=== PATIENT | male | born 1995 | race Caucasian/White ===

== ENCOUNTER 2016-08-30 11:30 | Day surgery (SDC) | payer OTHER ==
[~2016-08-30] VITALS: Ht 188 cm; Wt 97.5 kg
[~2016-08-30 11:30] MED LIST: CALC500T9 PO; CHOL4PAC PO; OMEP20CA11 PO
[2016-08-30 12:33] VITALS: BP 134/83; PULSE 58; RESP 16; O2SAT 98
[2016-08-30] MEDS ORDERED: fentaNYL-PF 50 mCg/mL 2 mL Inj ONE (13:34)
[2016-08-30] MEDS ORDERED: 0.9% Sodium Chloride 1,000 ML IV ONE (13:52)
[2016-08-30 14:03] VITALS: BP 141/69; PULSE 81; RESP 16; O2SAT 98
--- NOTE | 2016-08-30 14:07 | PCM.ENDCOL ---
Colonoscopy Date of Service: Aug 30, 2016 Physician Claude Bennett MD Pre Procedure Diagnosis: Diarrhea Post Procedure Dx & Findings: Polyp ileocecal erosion Procedure Colonoscopy PROCEDURE IN DETAIL: Prep adequate Withdrawal time 12 minutes After unremarkable rectal examination the Olympus video colonoscope was inserted patient's anal canal and was advanced to cecum. Landmarks were identified including the ileocecal valve and appendiceal orifice. Scope further advanced to the terminal ileum. Advanced 10 cm. Terminal ileum showed normal villous structures without any ulcer mass or erosion. Scope was withdrawn systematically. Visualized colonic mucosa showed healthy shiny mucosa with normal healthy-appearing vasculature. At the ileocecal valve, there was a 1 mm erosion which was biopsied using cold forceps. Random biopsies were obtained from the cecum to the rectum. In the distal rectum, there was a linear 5 mm polyp. It was removed completely using cold snare. In the rectum retroflexion was done which showed hemorrhoids. Anal canal was inspected carefully on the way out and hemorrhoids noted. Impression Polyp times 1 status post complete removal Ileo - Cecal valve erosion Hemorrhoids Recommendation Follow up in the GI clinic with Dr. Chin. Repeat colonoscopy in 3 years. Presedation Assessment Risks and Benefits Informed consent was obtained from the patient after all risks and benefits including but not limited to drug reaction, infection, pain, bleeding, perforation, as well as alternatives were discussed. Patient monitoring Continuous pulse oximetry, cardiac monitoring, blood pressure monitoring, IV access, and oxygen at 2L per nasal cannula. Periprocedural Fentanyl: Fentanyl 150mcg Incrementally Midazolam: Midazolam 7mg Incrementally Complications There were no periprocedural complications identified. Post Procedure Plan Post Procedure Recommendations 1. Restrict activities today. 2. Resume normal activities in the morning. 3. Resume medications. 4. Patient informed of normal post procedure side effects as bloating, drowsiness, blood streaking in the stool. 5. average risk CRCS. If colon polyps come back as: -Hyperplastic- can repeat colonoscopy in 10 years -Tubular adenoma- repeat colonoscopy in 5 years -Tubulovillous/villous adenoma- repeat colonoscopy in 3 years -If any dysplasia- return to clinic as soon as possible 6. Please don't hesitate to call me with any questions. Claude Bennett MD Aug 30, 2016 14:07
[2016-08-30 14:11] VITALS: BP 131/69; PULSE 62; RESP 16; O2SAT 94
[2016-08-30 14:15] VITALS: BP 145/86; PULSE 71; RESP 16; O2SAT 96
[2016-08-30] MEDS ORDERED: 0.9% Sodium Chloride 1,000 ML IV PRN (14:54)
[2016-08-30] MEDS ORDERED: Sodium Chloride LOK Flush 10 mL Syringe IV PRN (14:55)
[2016-08-30] MEDS ORDERED: fentaNYL-PF 50 mCg/mL 2 mL Inj IVPUSH PRN (14:55)
--- NOTE | 2016-09-02 17:15 | PATH ---
SURGICAL PATHOLOGY Attending Physician:Claude Bennett M.D. CASE STATUS: Signed Out PATIENT NAME: BITA SERRANO PID: [id number] : 1995 DATE COLLECTED:08/30/2016 00:00 SPECIMEN: 1: Ileum, Biopsy 2: Colon, Biopsy 3: Rectum, Biopsy CLINICAL HISTORY: 1). ILEOCECAL VALVE EROSION BIOPSY 2). RANDOM COLON BIOPSY 3). RECTAL POLYP FINAL DIAGNOSIS: 1.ILEOCECAL VALVE, EROSION, BIOPSY: SEVERELY ACTIVE ILEITIS WITH ULCER (SEE COMMENT). Negative for granulomas, dysplasia and malignancy. 2.RANDOM COLON, BIOPSIES COLONIC MUCOSA WITH NO DIAGNOSTIC ABNORMALITY. Negative for active, chronic, and microscopic colitis. Negative for dysplasia and malignancy. 3.RECTUM, POLYP, BIOPSY: RECTAL MUCOSA WITH A FEW SMALL BENIGN LYMPHOID AGGREGATES, INCREASED LYMPHOCYTES AND PLASMA CELLS IN THE LAMINA PROPRIA, AND A RARE POORLY-FORMED HISTIOCYTIC AGGREGATE (SEE COMMENT). Negative for dysplasia and malignancy. ICD10 CODER10.9 R19.7 NOTE: 1.The findings of severely active ileitis without chronic changes (such as pseudopyloric metaplasia) raise the differential diagnosis of medication-related mucosal injury (i.e., NSAIDS) and Crohn' s disease. 3.The rectal polyp biopsy shows no discrete lesion causing a polypoid appearance; however, there are increased plasma cells and lymphocytes in the lamina propria which may be indicative of a unsampled lymphoid aggregate. In addition, there is a small focal poorly-formed histiocytic aggregate indefinite for granuloma. Features of chronic or microscopic colitis are not identified. GROSS DESCRIPTION: The specimen is received in three formalin filled containers labeled with the patient's name. 1). The specimen is sublabeled "ICV erosion" and consists of a 0.1 x 0.1 x 0.1 CM portion of tissue which is entirely submitted in cassette 1A. 2). The specimen is sublabeled "random colon" and consists of 5 portions of tissue which aggregate to 0.5 x 0.5 x 0.6 to CM. The specimen is entirely submitted in cassette 2A. 3). The specimen is sublabeled "rectal polyp" and consists of 3 portions of tissue which aggregate to 0.5 x 0.3 x 0.2 CM. The specimen is entirely submitted in cassette 3A. 08/31/2016 [facility] ICD-9 CODES: CPT CODES: 1: 94029 2: 06862 3: 02634 Electronically Signed Out Nidia Loyd MD [facility]ly [facility] [address], [place] [address] Technical component performed at [facility], [facility] [address], [place], [address]
== END 2016-08-30 23:59 | disposition home or self-care (01) ==
LOC: END 11:30
PROVIDERS: ATTEND Internal Medicine
DX: K50.80 Crohn's disease of both small and large intestine without complications (principal); K62.1 Rectal polyp; K59.00 Constipation, unspecified; R19.7 Diarrhea, unspecified; R10.9 Unspecified abdominal pain
CPT/HCPCS: 45380; 45385; 99153; G0500; J2250; J3010; J7030